=== PATIENT | female | born 1965 | race Caucasian/White ===

== ENCOUNTER 2019-09-01 01:39 | Inpatient (IN) | payer SELFPAY ==
[~2019-09-01] VITALS: Ht 175.3 cm; Wt 79.4 kg
--- NOTE | 2019-09-01 02:15 | NUR ---
PT AAOX4. BIBS C/O SOB AND SLEEP DEPRIED. PER PATIENT "I DONT FEEL GOOD. I FEEL TIRED AND CONFUSED." PT COUGHING AND BREATHING USING ACESSORY MUSCLES. PT PLACED ON MONITOR AND PULSE OX. WILL CONTINUE TO MONITOR.
[2019-09-01 02:38] LABS: BASOPHILS # (AUTO) 0.1 /CMM (0.0-0.2); BASOPHILS % (AUTO) 1.1 % (0.0-2.0); EOSINOPHILS % (AUTO) 0.8 % (0.0-6.0); HEMATOCRIT 46 % (33-45); HEMOGLOBIN 14.8 g/dL (11.5-14.8); LYMPHOCYTES # (AUTO) 1.1 /CMM (0.8-4.8); LYMPHOCYTES % (AUTO) 15.1 % (20.0-44.0); MEAN CORPUSCULAR HGB CONC 32 g/dl (31.0-36.0); MEAN CORPUSCULAR VOLUME 79 fL (82-100); MONOCYTES # (AUTO) 0.6 /CMM (0.1-1.30); MONOCYTES % (AUTO) 8.7 % (2.0-12.0); NEUTROPHILS # (AUTO) 5.3 /CMM (1.8-8.9); NEUTROPHILS % (AUTO) 74.3 % (43.0-81.0); PLATELET COUNT (AUTO) 258 /CMM (150-450); RED BLOOD CELL COUNT(AUTO) 5.85 MIL/uL (4.0-5.2); WHITE BLOOD COUNT (AUTO) 7.1 K/uL (4.3-11.0)
[2019-09-01 02:45] LABS: CALCIUM, SERUM 9.1 mg/dL (8.5-10.1); CREATININE 1.2 mg/dL (0.6-1.3)
--- NOTE | 2019-09-01 02:45 | NUR ---
xray at bedside
[2019-09-01] MEDS ORDERED: FUROSEMIDE 40 MG/4 ML VIAL IV ONE (03:30)
--- NOTE | 2019-09-01 03:44 | NUR ---
BED ASSIGNMENT 307-2
[2019-09-01] MEDS ORDERED: ZOLPIDEM TARTRATE 5 MG TABLET PO PRN (04:00)
[2019-09-01] MEDS ORDERED: MAG HYDROX/AL HYDROX/SIMETH 30 ML UDC PO PRN (04:00)
[2019-09-01] MEDS ORDERED: ACETAMINOPHEN 325 MG TABLET PO PRN (04:00)
[2019-09-01] MEDS ORDERED: HYDROCODONE/APAP 5/325MG 1 EACH TABLET PO PRN (04:00)
[2019-09-01] MEDS ORDERED: MORPHINE SULFATE INJ 2 MG/ML DISP.SYRIN IV PRN (04:00)
[2019-09-01] MEDS ORDERED: MAGNESIUM HYDROXIDE 30 ML UDC PO PRN (04:00)
--- NOTE | 2019-09-01 04:10 | NUR ---
REPORT GIVEN TO LAKSHMI CORTEZ
[2019-09-01 04:50] VITALS: BP 149/66
--- NOTE | 2019-09-01 04:50 | NUR ---
ADMISSION NOTE PATIENT 53 YO MALE (IDENTIFIES FEMALE) WITH CC OF WORSENING SOB. ADMITTED TO TELEMETRY FOR CHF EXACERBATION. AT THIS TIME SHE DENIES SOB. IN NO APPARET DISTRESS ON RA. PT WISHES TO BE FULL CODE. ADMISSION ASSESSMENT PERFORMED NEW ORDERS RECIED FROM VANESSA RICHARDS. PT ORIENTED X3. PT ORIENTED TO ROOM. BED DOWN LOCKED CALL LIGHT WITHIN REACH. SR X2. PT AMBULATORY AND NOT A FALL RISK.
[2019-09-01 05:04] LABS: ALBUMIN 3.4 g/dL (3.4-5.0); BILIRUBIN,DIRECT 1.2 mg/dL (0.0-0.2); BILIRUBIN,TOTAL 2.2 mg/dL (0.2-1.0); MAGNESIUM 1.9 mg/dL (1.8-2.4); PHOSPHORUS 4.4 mg/dL (2.5-4.9); TOTAL PROTEIN, SERUM 7.1 g/dL (6.4-8.2)
[2019-09-01 05:12] LABS: THYROID STIMULATING HORMONE 13.801 uIU/mL (0.358-3.74)
[2019-09-01] MEDS: PANTOPRAZOLE 40 MG TABLET.DR PO SCH (06:37)
--- NOTE | 2019-09-01 07:00 | NUR ---
DRYING UNIT FELTING MACHINE OPERATOR NOTES PATIENT IN BED ALERT ORIENTED X 3. NO ACUTE DISTRESS NOTED, BREATHING UNLABORED. IV ACCESS PATENT AND INTACT, NO REDNESS, NO SWELLING NOTED. SAFETY MEASURES IN PLACE. CALL LIGHT WITHIN REACH. WILL CONTINUE TO MONITOR ACCORDINGLY.
[2019-09-01] MEDS ORDERED: LEVO25TA9 PO (08:01)
[2019-09-01] MEDS ORDERED: CARV3.122 PO (08:07)
[2019-09-01] MEDS ORDERED: FUROSEMIDE 40 MG/4 ML VIAL IV SCH (09:00)
[2019-09-01] MEDS ORDERED: ENOXAPARIN SODIUM 40 MG/0.4 ML DISP.SYRIN SQ SCH (09:30)
--- NOTE | 2019-09-01 09:30 | NUR ---
GASKET SUPERVISOR NOTES CLARIFIED WITH DR LISSETTE CEDENO PRESENT ON THE FLOOR REGARDING LASIX 80MG ORDER, MADE AWARE THAT LASIX 40 MG IV ALREADY GIVEN EARLIER, PER DR MCLAUGHLIN GIVE LASIX 80MG ORDERED. DR MCLAUGHLIN AWARE OF ECHOCARDIOGRAM RESULT.
[2019-09-01] MEDS: FUROSEMIDE 100 MG/10 ML VIAL IV SCH ×3 (09:56→18:22)
[2019-09-01] MEDS: CARVEDILOL 6.25 MG TABLET PO SCH ×2 (09:56→21:38)
--- NOTE | 2019-09-01 11:00 | NUR ---
PHOTO RETOUCHER NOTES LABORATORY TEST RESULTED FROM TODAY INCLUDING FREE T4 , BJ VELASQUEZ PRESENT ON THE FLOOR AWARE.
[2019-09-01 12:00] VITALS: BP 105/57
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
[2019-09-01 16:00] VITALS: BP 105/71
--- NOTE | 2019-09-01 18:48 | NUR ---
PRINTED CIRCUIT BOARD PANELS DEBURRER NOTES PATIENT IN BED ALERT ORIENTED X 3. NO ACUTE DISTRESS NOTED, BREATHING UNLABORED. NO SOB NOTED. IV ACCESS PATENT AND INTACT, NO REDNESS, NO SWELLING NOTED. DUE MEDICATIONS GIVEN, NO ASE NOTED. NEEDS ATTENDED AND ANTICIPATED. KEPT CLEAN DRY AND COMFORTABLE. SAFETY MEASURES IN PLACE. CALL LIGHT WITHIN REACH. WILL ENDORSE TO NIGHT NURSE FOR CONTINUITY OF CARE.
--- NOTE | 2019-09-01 19:25 | NUR ---
TELERN FULLY AWAKE, DENIES DISCOMFORTS, NO SOB. LOWER EXTREMITIES SLIGHTLY SWOLLEN, ELEVATED ON PILLOWS. STATED HER LEGS ARE BETTER THIS TIME AFTER RECEIVING 3 DOSES OF LASIX IV. STRICT I/O, REMINDED TO CALL STAFF FOR ANY ASSISTANCE OR DISCOMFORTS. SR ON THE MONITOR, ENCOURAGED TO SPACE ACTIVITIES. NO OTHER NEEDS MADE. CONTINUED MONITORING. CLOSELY WATCHED.
[2019-09-01 20:00] VITALS: BP 94/64
--- NOTE | 2019-09-01 22:55 | NUR ---
TELERN OCCASIONAL PRODUCTIVE COUGH, NO SOB. FLUIDS RESTRICTED. MID SNACKS PROVIDED. DUE MEDS ORDERED ADMINISTERED.
--- NOTE | 2019-09-01 23:20 | NUR ---
TELERN SLEEPS ON/OFF. SOB THIS TIME ON MIN EXERTION. BP 87/64. BEDREST INSTRUCTED. 02 2 L VIA NC STARTED. VOIDED 180 CC YELLOW URINE. FEW CRACKLES NOTED. STAYED WITH PT FOR AWHILE, CLOSELY WATCHED.
[2019-09-02] VITALS: BP 96/70
--- NOTE | 2019-09-02 00:15 | NUR ---
TELERN SATURATION AT 96 % BP 96/70. NO SOB, 02 MAINTAINED. CLOSELY WATCHED.
[2019-09-02 05:00] VITALS: BP 119/64
--- NOTE | 2019-09-02 06:30 | NUR ---
TELERN FINALLY SLEPT, CLOSELY WATCHED.
[2019-09-02 06:44] LABS: ALBUMIN 2.5 g/dL (3.4-5.0); BILIRUBIN,TOTAL 1.8 mg/dL (0.2-1.0); CALCIUM, SERUM 8.3 mg/dL (8.5-10.1); CREATININE 1.3 mg/dL (0.6-1.3); POTASSIUM 2.9 mmol/L (3.5-5.1); TOTAL PROTEIN, SERUM 5.7 g/dL (6.4-8.2)
[2019-09-02 06:46] LABS: BASOPHILS % (AUTO) 0.6 % (0.0-2.0); EOSINOPHILS % (AUTO) 2.1 % (0.0-6.0); HEMATOCRIT 41 % (33-45); HEMOGLOBIN 12.9 g/dL (11.5-14.8); LYMPHOCYTES # (AUTO) 1.6 /CMM (0.8-4.8); LYMPHOCYTES % (AUTO) 27.6 % (20.0-44.0); MEAN CORPUSCULAR HGB CONC 32 g/dl (31.0-36.0); MEAN CORPUSCULAR VOLUME 78 fL (82-100); MONOCYTES # (AUTO) 0.5 /CMM (0.1-1.30); MONOCYTES % (AUTO) 8.8 % (2.0-12.0); NEUTROPHILS # (AUTO) 3.6 /CMM (1.8-8.9); NEUTROPHILS % (AUTO) 60.9 % (43.0-81.0); PLATELET COUNT (AUTO) 214 /CMM (150-450); RED BLOOD CELL COUNT(AUTO) 5.16 MIL/uL (4.0-5.2); WHITE BLOOD COUNT (AUTO) 5.9 K/uL (4.3-11.0)
[2019-09-02 08:00] VITALS: BP_SYST 152; BP_SYST 95; BP_DIAS 69; BP_DIAS 78
[2019-09-02] MEDS: ENOXAPARIN SODIUM 40 MG/0.4 ML DISP.SYRIN SQ SCH (09:00)
[2019-09-02] MEDS: POTASSIUM CHLORIDE 20 MEQ TAB.PRT.SR PO SCH ×5 (09:27→14:10)
[2019-09-02] MEDS: CARVEDILOL 6.25 MG TABLET PO SCH ×2 (09:27→21:00)
[2019-09-02] MEDS: PANTOPRAZOLE 40 MG TABLET.DR PO SCH (09:31)
--- NOTE | 2019-09-02 10:05 | NUR ---
EDUCATION ABOUT AMOUNT FLUID INTAKE PROVIDED. SUGGESTED SAFE ENERGY AND STAY IN BED AND USE OXYGEN FOR COMFORT. PATIENT VERBALIZED UNDERSTANDING
[2019-09-02] MEDS: LEVOTHYROXINE SODIUM 50 MCG TABLET PO SCH (12:32)
[2019-09-02] MEDS: FUROSEMIDE 100 MG/10 ML VIAL IV SCH ×3 (12:36→23:34)
[2019-09-02 16:00] VITALS: BP 113/71
--- NOTE | 2019-09-02 19:11 | NUR ---
PATIENT IN BED ALERT ORIENTED X 3. SOB WHEN WALKING.STRICT I/O. IV ACCESS PATENT AND INTACT. NEEDS ATTENDED AND ANTICIPATED. KEPT CLEAN DRY AND COMFORTABLE. SAFETY MEASURES IN PLACE. CALL LIGHT WITHIN REACH. WILL ENDORSE TO NIGHT NURSE FOR CONTINUITY OF CARE.
--- NOTE | 2019-09-02 19:40 | NUR ---
RN OPENING NOTES RECEIVED REPORT FROM NILSON RNFLO. FOUND Pt AWAKE, SITTING UP IN BED. A/OX3, VERBAL, ABLE TO MAKE NEEDS KNOWN. ON TELE MONITOR, TELE READING SR 88 W/PVC's. IV ACCESS ON LAC #18G, SL. SAFETY MEASURES IN PLACE. BED LOW, LOCKED, HOB ELEVATED, SIDE RAILS UP, CALL LIGHT AND BEDSIDE TABLE WITHIN REACH. WILL CONTINUE TO MONITOR Pt's CONDITION AND SAFETY THROUGHOUT THE NIGHT.
[2019-09-02 20:06] VITALS: BP 96/73
[2019-09-02] MEDS: ONDANSETRON HCL/PF 4 MG/2 ML VIAL IVP PRN (20:08)
--- NOTE | 2019-09-03 06:45 | NUR ---
RN CLOSING NOTES NO SIGNIFICANT CHANGES IN Pt's CONDITION. Pt REMAINS STABLE PER BASELINE. NO S/S OF ACUTE DISTRESS OR SEVERE SOB NOTED DURING THE SHIFT. ALL NEEDS MET AND ATTENDED TO. SAFETY MEASURES IN PLACE. BED LOW, LOCKED, HOB ELEVATED, SIDE RAILS UP, CALL LIGHT AND BEDSIDE TABLE WITHIN REACH. WILL ENDORSE TO DAYSHIFT RN FOR Pt's PRISCILLA. Addendum: 09/03/19 at 0653 by URI CASTORENA RN TELE READING SR 93 W/BBB's
[2019-09-03] MEDS: PANTOPRAZOLE 40 MG TABLET.DR PO SCH (07:30)
[2019-09-03 07:46] LABS: BASOPHILS # (AUTO) 0.1 /CMM (0.0-0.2); BASOPHILS % (AUTO) 0.6 % (0.0-2.0); EOSINOPHILS % (AUTO) 0.2 % (0.0-6.0); HEMATOCRIT 46 % (33-45); HEMOGLOBIN 14.5 g/dL (11.5-14.8); LYMPHOCYTES % (AUTO) 22.9 % (20.0-44.0); MEAN CORPUSCULAR HGB CONC 31 g/dl (31.0-36.0); MEAN CORPUSCULAR VOLUME 79 fL (82-100); MONOCYTES # (AUTO) 1.2 /CMM (0.1-1.30); MONOCYTES % (AUTO) 13.8 % (2.0-12.0); NEUTROPHILS # (AUTO) 5.6 /CMM (1.8-8.9); NEUTROPHILS % (AUTO) 62.5 % (43.0-81.0); PLATELET COUNT (AUTO) 227 /CMM (150-450); RED BLOOD CELL COUNT(AUTO) 5.82 MIL/uL (4.0-5.2); WHITE BLOOD COUNT (AUTO) 8.9 K/uL (4.3-11.0)
[2019-09-03 07:55] LABS: BILIRUBIN,TOTAL 2.3 mg/dL (0.2-1.0); CALCIUM, SERUM 8.9 mg/dL (8.5-10.1); CREATININE 1.4 mg/dL (0.6-1.3); MAGNESIUM 1.9 mg/dL (1.8-2.4); PHOSPHORUS 5.1 mg/dL (2.5-4.9); TOTAL PROTEIN, SERUM 6.6 g/dL (6.4-8.2)
[2019-09-03 08:00] VITALS: BP 85/53
[2019-09-03] MEDS: LEVOTHYROXINE SODIUM 50 MCG TABLET PO SCH (08:51)
[2019-09-03] MEDS: CARVEDILOL 6.25 MG TABLET PO SCH ×2 (08:52→21:00)
[2019-09-03] MEDS: ENOXAPARIN SODIUM 40 MG/0.4 ML DISP.SYRIN SQ SCH (08:56)
[2019-09-03 12:00] VITALS: BP 78/62
[2019-09-03] MEDS: ONDANSETRON HCL/PF 4 MG/2 ML VIAL IVP PRN ×2 (15:28→21:38)
[2019-09-03 16:00] VITALS: BP 99/69
--- NOTE | 2019-09-03 17:30 | NUR ---
PATIENT NOTED WITH DISTENDED ABDOMEN, NO N/V AT THIS MOMENT
--- NOTE | 2019-09-03 18:03 | NUR ---
RECEIVED A NEW ORDER FROM ; CT ABDOMEN /PELVIS STAT
--- NOTE | 2019-09-03 18:35 | NUR ---
PATIENT PICKED UP BY RADIOLOGY STAFF
--- NOTE | 2019-09-03 19:45 | NUR ---
RN OPENING NOTES RECEIVED REPORT FROM FLO DEVINE RN. FOUND Pt AWAKE, SITTING UP IN BED. A/OX3, VERBAL, ABLE TO MAKE NEEDS KNOWN. ON TELE MONITOR, TELE READING SR 87 W/PVC's. IV ACCESS ON RFA #22G, SL. SAFETY MEASURES IN PLACE. BED LOW, LOCKED, HOB ELEVATED, SIDE RAILS UP, CALL LIGHT AND BEDSIDE TABLE WITHIN REACH. WILL CONTINUE TO MONITOR Pt's CONDITION AND SAFETY THROUGHOUT THE NIGHT.
[2019-09-03 20:00] VITALS: BP 98/76
[2019-09-04] VITALS (7 sets, daily range): BP systolic 90–129; BP diastolic 60–76
[2019-09-04] MEDS: ALBUTEROL FS 2.5 MG/0.5 ML VIAL.NEB NEB PRN ×3 (00:14→22:50)
[2019-09-04] MEDS: IPRATROPIUM NEB FS 0.5 MG/2.5 ML AMPUL.NEB NEB PRN ×3 (00:14→22:50)
[2019-09-04] MEDS: ONDANSETRON HCL/PF 4 MG/2 ML VIAL IVP PRN (04:24)
--- NOTE | 2019-09-04 06:39 | NUR ---
RN CLOSING NOTES NO SIGNIFICANT CHANGES IN Pt's CONDITION. PRN BREATHING TREATMENT ORDERED. RECEIVED X1 BREATHING TREATMENT DURING SHIFT. ALL NEEDS MET AND ATTENDED TO. SAFETY MEASURES IN PLACE. BED LOW, LOCKED, HOB ELEVATED, SIDE RAILS UP, CALL LIGHT AND BEDSIDE TABLE WITHIN REACH. TELE READING SR 81 W/ BBBs. WILL ENDORSE TO DAYSHIFT RN FOR Pt's PRISCILLA.
[2019-09-04 06:40] LABS: BASOPHILS % (AUTO) 0.6 % (0.0-2.0); EOSINOPHILS % (AUTO) 0.4 % (0.0-6.0); HEMATOCRIT 43 % (33-45); HEMOGLOBIN 13.8 g/dL (11.5-14.8); LYMPHOCYTES # (AUTO) 1.7 /CMM (0.8-4.8); LYMPHOCYTES % (AUTO) 20.6 % (20.0-44.0); MEAN CORPUSCULAR HGB CONC 32 g/dl (31.0-36.0); MEAN CORPUSCULAR VOLUME 79 fL (82-100); MONOCYTES # (AUTO) 0.9 /CMM (0.1-1.30); MONOCYTES % (AUTO) 11.4 % (2.0-12.0); NEUTROPHILS # (AUTO) 5.5 /CMM (1.8-8.9); PLATELET COUNT (AUTO) 214 /CMM (150-450); WHITE BLOOD COUNT (AUTO) 8.2 K/uL (4.3-11.0)
[2019-09-04] MEDS: PANTOPRAZOLE 40 MG TABLET.DR PO SCH (07:25)
[2019-09-04] MEDS: LEVOTHYROXINE SODIUM 50 MCG TABLET PO SCH (07:25)
--- NOTE | 2019-09-04 07:28 | NUR ---
PHOTOGRAPHERS' MODEL OPENING NOTES RECEIVED PT SITTING ON CHAIR BY BEDSIDE. A/O X3. ABLE TO MAKE NEEDS KNOWN, DENIES PAIN OR ANY DISCOMFORTS AT THIS TIME. PT ON PRN SUPPLEMENTAL 02 VIA N/C @ 2LPM, BREATHING EVEN AND UNLABORED, NO SOB NOTED AT THIS TIME. ON TELE MONITORING WITH CURRENT READING OF SR WITH BBB'S AND HR OF 85, NO C/O CARDIAC DISTRESS VOICED. IV SL ON RFA INTACT AND PATENT. CALL LIGHT AND BEDSIDE TABLE WITHIN EASY REACH OF PT. WILL CONTINUE TO MONITOR PT ACCORDINGLY.
[2019-09-04 07:44] LABS: ALBUMIN 3.1 g/dL (3.4-5.0); BILIRUBIN,TOTAL 2.6 mg/dL (0.2-1.0); CALCIUM, SERUM 9.1 mg/dL (8.5-10.1); CREATININE 1.8 mg/dL (0.6-1.3); MAGNESIUM 2.1 mg/dL (1.8-2.4); PHOSPHORUS 4.9 mg/dL (2.5-4.9); POTASSIUM 4.8 mmol/L (3.5-5.1); TOTAL PROTEIN, SERUM 6.5 g/dL (6.4-8.2)
[2019-09-04] MEDS: CARVEDILOL 6.25 MG TABLET PO SCH ×2 (08:09→21:30)
[2019-09-04] MEDS: ENOXAPARIN SODIUM 40 MG/0.4 ML DISP.SYRIN SQ SCH (08:11)
--- NOTE | 2019-09-04 08:51 | NUR ---
RN NOTES PT SEEN AND EVALUATED BY DR KAHN WITH ORDER TO DO NM HIDA SCAN. NM WENDY LUCERO CAME AND EXPLAINED PROCEDURE TO PT AND STATED THAT HE WILL DO IT AT 1200 . PT VERBALIZED UNDERSTANDING. NPO ENFORCED. WILL CONTINUE TO MONITOR.
[2019-09-04] MEDS ORDERED: PIPERACILLIN /TAZOBACTAM 3.375 G in IV D5W 50 ML IV ONE (09:00)
--- NOTE | 2019-09-04 10:21 | NUR ---
RN NOTES PT SEEN AND EVALUATED BUY DR ROWLAND. INFORMED HIM REGARDING PT'S TELEMONITORING READINGS OF OCCASIONAL PVC'S AND BBB'S. NO NEW ORDER MADE AT THIS TIME AND TO CONTINUE TO CLOSELY MONITOR PT.
[2019-09-04] MEDS ORDERED: PIPERACILLIN /TAZOBACTAM 4.5 G in IV D5W 50 ML IV SCH (12:00)
--- NOTE | 2019-09-04 12:53 | NUR ---
RN NOTES PT RETURNED FROM ME HIDA SCAN. NM WENDY LUCERO STATED THAT HE WILL TAKE PT'S DOWN AGAIN LATER FOR FINAL SCAN. WILL CONTINUE TO MONITOR
--- NOTE | 2019-09-04 13:31 | NUR ---
RN NOTES LEFT VEST FROM [facility] DELIVERED BY MARIETTA. MARIETTA EDUCATED AND DEMONSTRATED HOW TO USE THE LIFE VEST AND PT ABLE TO DEMONSTRATE HOW TO USE IT. LIFE VEST AT BEDSIDE AT THIS TIME.
--- NOTE | 2019-09-04 13:33 | NUR ---
RN NOTES PT PICKED-UP BY JAZMINE VIA WHEELCHAIR FOR NM HIDA SCAN.
[2019-09-04] MEDS ORDERED: PIPERACILLIN /TAZOBACTAM 3.375 G in IV D5W 100 ML IV SCH (15:00)
[2019-09-04] MEDS: PIPERACILLIN /TAZOBACTAM 3.375 G in IV D5W 100 ML IV SCH (16:12)
--- NOTE | 2019-09-04 16:53 | NUR ---
RN NOTES PT WHEELED DOWN JUST NOW BY JAZMINE VIA WHEELCHAIR FOR FINAL NM HIDA SCAN.
--- NOTE | 2019-09-04 18:44 | NUR ---
WATCH LEADER CLOSING NOTES PT AWAKE AND SITTING AT SIDE OF BED AT THIS TIME. A/O X3. ABLE TO VERBALIZED NEED AND AMBULATORY. ON PRN SUPPLEMENTAL 02 VIA N/C @ 2-3LPM, BREATHING EVEN AND UNLABORED, NO SOB NOTED. ON TELE MONITORING SHOWS CURRENT READING OF SR WITH BBB'S AND HR ON THE 80'S, NO C/O CARDIAC DISTRESS VOICED. IV ACCESS ON RFA G#22 INTACT AND PATENT, IV ATB ZOSYN INFUSING @ 25ML/HR AT THIS TIME, NO S/S OF INFILTRATIONS OR INFECTION AT SITE NOTED. ALL NEEDS AND CARE ATTENDED WELL. BED IN LOW LOCKED POSITION WITH SR UP X2. CALL LIGHT AND BEDSIDE TABLE WITHIN EASY REACH OF PT. WILL ENDORSE TO CUTTING AND PRINTING MACHINE OPERATOR NURSE FOR PRISCILLA.
[2019-09-04 18:58] LABS: AMYLASE 18 U/L (25-115); LIPASE 49 U/L (73-393)
[2019-09-04 18:59] LABS: ACETAMINOPHEN < 2 ug/ml (10-30)
[2019-09-04 19:39] LABS: IRON, SERUM 34 ug/dl (50-175); TOTAL IRON BINDING CAPACITY 466 ug/dl (250-450)
[2019-09-04 20:06] LABS: FERRITIN 65 ng/mL (8-388); GAMMA GLUTAMYL TRANSFERASE 115 U/L (5-85)
--- NOTE | 2019-09-04 20:30 | NUR ---
RN NOTES PATIENT ALERT AND ORIENTED X4, ROOM AIR, ANXIOUS, RESTLESS, NON PRODUCTIVE COUGH, HX OF CHF, LUNG SOUNDS ARE CLEAR ON AUSCULTATION, UNCOMFORTABLE LYING DOWN, BLOATED, WITH JAUNDICE, THIGH EDEMA, US DOPPLER OF ABDOMEN VEINS COMPLETED, WILL FOLLOW UP RESULTS.
[2019-09-05] VITALS (7 sets, daily range): BP systolic 93–110; BP diastolic 52–77
[2019-09-05] MEDS: PIPERACILLIN /TAZOBACTAM 3.375 G in IV D5W 100 ML IV SCH ×3 (00:05→18:46)
--- NOTE | 2019-09-05 06:40 | NUR ---
RN NOTES PATIENT IS ALERT AND ORIENTED X3, ROOM AIR, ANXIOUS, RESTLESS, DRY COUGH, LUNGS ARE CLEAR ON AUSCULTATION, SPO2 ON ROOM AIR 100%, ZOSYN GIVEN, STRICT I&Os, LIFE VEST ON, PATIENT WAS INSTRUCTED TO USE LIFE VEST WHEN TELE MONITOR IS DISCONTINUED OR UPON DISCHARGE
[2019-09-05 06:56] LABS: ALBUMIN 2.9 g/dL (3.4-5.0); BILIRUBIN,DIRECT 1.4 mg/dL (0.0-0.2); BILIRUBIN,TOTAL 2.2 mg/dL (0.2-1.0); TOTAL PROTEIN, SERUM 6.2 g/dL (6.4-8.2)
--- NOTE | 2019-09-05 07:14 | NUR ---
INITIAL RECEIVED PT ASLEEP IN BED RESPIRATION EVEN AND UNLABORED NO DISTRESS NOTED. REPORTED PT IS. A/O X3. ABLE TO MAKE NEEDS KNOWN. PT ON PRN SUPPLEMENTAL 02 VIA N/C @ 2LPM , NO SOB NOTED AT THIS TIME. ON TELE MONITORING WITH CURRENT READING OF SR WITH BBB'S AND HR OF 71, NO C/O CARDIAC DISTRESS VOICED. IV SL ON RFA INTACT AND PATENT. CALL LIGHT AND BEDSIDE TABLE WITHIN EASY REACH OF PT. WILL CONTINUE TO MONITOR PT ACCORDINGLY.
[2019-09-05] MEDS: ALBUTEROL FS 2.5 MG/0.5 ML VIAL.NEB NEB PRN (07:46)
[2019-09-05] MEDS: IPRATROPIUM NEB FS 0.5 MG/2.5 ML AMPUL.NEB NEB PRN (07:46)
[2019-09-05] MEDS ORDERED: DoBUTamine 500 MG/250 ML PIGGYBACK IV ONE (08:00)
[2019-09-05 08:13] LABS: BASOPHILS % (AUTO) 0.4 % (0.0-2.0); EOSINOPHILS % (AUTO) 0.9 % (0.0-6.0); HEMATOCRIT 43 % (33-45); HEMOGLOBIN 13.7 g/dL (11.5-14.8); LYMPHOCYTES # (AUTO) 1.7 /CMM (0.8-4.8); LYMPHOCYTES % (AUTO) 19.4 % (20.0-44.0); MEAN CORPUSCULAR HGB CONC 32 g/dl (31.0-36.0); MEAN CORPUSCULAR VOLUME 79 fL (82-100); MONOCYTES # (AUTO) 0.7 /CMM (0.1-1.30); MONOCYTES % (AUTO) 7.9 % (2.0-12.0); NEUTROPHILS # (AUTO) 6.2 /CMM (1.8-8.9); NEUTROPHILS % (AUTO) 71.4 % (43.0-81.0); PLATELET COUNT (AUTO) 237 /CMM (150-450); WHITE BLOOD COUNT (AUTO) 8.7 K/uL (4.3-11.0)
[2019-09-05] MEDS: PANTOPRAZOLE 40 MG TABLET.DR PO SCH (08:16)
[2019-09-05] MEDS: LEVOTHYROXINE SODIUM 50 MCG TABLET PO SCH (08:17)
[2019-09-05 08:35] LABS: MAGNESIUM 2.2 mg/dL (1.8-2.4); PHOSPHORUS 4.9 mg/dL (2.5-4.9)
[2019-09-05] MEDS: ENOXAPARIN SODIUM 40 MG/0.4 ML DISP.SYRIN SQ SCH (08:35)
[2019-09-05] MEDS: CARVEDILOL 6.25 MG TABLET PO SCH ×2 (09:00→20:47)
--- NOTE | 2019-09-05 10:02 | NUR ---
ROSEANN RN NOTE PATIENT TRANSFERRED DOWN TO ROSEANN WITH NO S/S OF RESP DISTRESS. PATIENT ON 2L NC TOLERATING WELL. PATIENT DENIES CHEST PAIN/ SOB. PATIENT IVS PATENT AND INTACT NO S/S OF INFECTION OR INFILTRATION RUNNING ZOSYN PIGGY BACK. PATIENT A/0 X 4. POC AND GOALS DISCUSSED WITH PATIENT. PATIENT VERBALIZES UNDERSTANDING. CALL LIGHT WITHIN REACH. RN WILL CONTINUE TO MONITOR. SAFETY PRECAUTIONS IN PLACE. BED IN LWEST LOCKED POSITION SIDE RAILS UP X 2.
--- NOTE | 2019-09-05 11:00 | NUR ---
RN NOTES DUE CARVEDILOL DUE AT 900AM NOT GIVEN DUE TO BLOOD PRESSURE BELOW THE PARAMETER
--- NOTE | 2019-09-05 12:58 | NUR ---
RN NOTES INFORMED CHARGE NURSE AND CALLED PHARMACY TO INFORM THAT PUMPS RECOMMENDS CENTRAL LINE WITH THE DOBUTAMINE DRIP ADMINISTRATION. SPOKE TO ЕКАТЕРИНА, PER THE LATTER OKAY TO GIVE THROUGH PERIPHERAL LINE
--- NOTE | 2019-09-05 13:00 | NUR ---
RN NOTES STARTED DOBUTAMINE DRIP ORDERED. WILL MONITOR PATIENT ACCORDINGLY
[2019-09-05] MEDS: DOBUTamine 500 MG in IV D5W 210 ML IV PRN (15:29)
--- NOTE | 2019-09-05 15:29 | NUR ---
RN NOTES SCANNED DOBUTAMINE AT THIS TIME BUT WAS STARTED PRIOR TO THIS TIME AT 1300. CALCULATION OF AMOUNT TO BE TRANSFUSED CALCULATED WITH DANA HO (CHARGE NURSE). PATIENT WEIGHT 79KG.
--- NOTE | 2019-09-05 17:00 | NUR ---
RN NOTES CALLED PHARMACY FOR ZOSYN, PER PHARMACIST WILL DELIVERED
--- NOTE | 2019-09-05 19:00 | NUR ---
RN NOTES ENDORSED FOR CONTINUITY OF CARE. NOT ON ANY FORM OF DISTRESS. WITH ONGOING DOBUTAMINE AT PRESCRIBED RATE AND ZOSYN AT 25CC/HR. ALL NEEDS ATTENDED AND MET. CALL LIGHT WITHIN REACH.SAFETY MEASURES IN PLACE.
[2019-09-05] MEDS: ZOLPIDEM TARTRATE 5 MG TABLET PO PRN (20:31)
[2019-09-06] VITALS (10 sets, daily range): BP systolic 90–112; BP diastolic 52–71
[2019-09-06] MEDS: PIPERACILLIN /TAZOBACTAM 3.375 G in IV D5W 100 ML IV SCH ×3 (00:53→16:21)
[2019-09-06] MEDS: DOBUTamine 500 MG in IV D5W 210 ML IV PRN ×2 (03:03→16:19)
[2019-09-06 04:06] LABS: HIV SCRN 4G wRFX Non Reactive (Non Reactive)
[2019-09-06 06:06] LABS: VARICELLA ZOSTER IgG 3194 index (Immune >165)
[2019-09-06 06:54] LABS: BASOPHILS # (AUTO) 0.1 /CMM (0.0-0.2); BASOPHILS % (AUTO) 0.8 % (0.0-2.0); EOSINOPHILS % (AUTO) 2.1 % (0.0-6.0); HEMATOCRIT 38 % (33-45); HEMOGLOBIN 12.7 g/dL (11.5-14.8); LYMPHOCYTES % (AUTO) 16.2 % (20.0-44.0); MEAN CORPUSCULAR HGB CONC 33 g/dl (31.0-36.0); MEAN CORPUSCULAR VOLUME 77 fL (82-100); MONOCYTES # (AUTO) 0.6 /CMM (0.1-1.30); MONOCYTES % (AUTO) 9.1 % (2.0-12.0); NEUTROPHILS # (AUTO) 4.6 /CMM (1.8-8.9); NEUTROPHILS % (AUTO) 71.8 % (43.0-81.0); PLATELET COUNT (AUTO) 222 /CMM (150-450); RED BLOOD CELL COUNT(AUTO) 4.98 MIL/uL (4.0-5.2); WHITE BLOOD COUNT (AUTO) 6.4 K/uL (4.3-11.0)
[2019-09-06 07:06] LABS: IMMUNOGLOBULIN A, SERUM 318 mg/dL (87-352); IMMUNOGLOBULIN G, SERUM 825 mg/dL (700-1600); IMMUNOGLOBULIN M, SERUM 68 mg/dL (26-217)
[2019-09-06 07:10] LABS: ALBUMIN 2.6 g/dL (3.4-5.0); BILIRUBIN,TOTAL 1.9 mg/dL (0.2-1.0); CALCIUM, SERUM 8.3 mg/dL (8.5-10.1); CREATININE 1.4 mg/dL (0.6-1.3); MAGNESIUM 2.1 mg/dL (1.8-2.4); PHOSPHORUS 3.2 mg/dL (2.5-4.9); POTASSIUM 3.9 mmol/L (3.5-5.1)
--- NOTE | 2019-09-06 07:10 | NUR ---
ROSEANN RN OPENING NOTES RECEIVED PT LYING ON BED,ALERT/ORIENTED X3 WITH ANXIETY BEHAVIOR.ON TELE HR IS 72 WITH NSR.ON ROOM AIR,TOLERATING WELL.NO SOB AND ACUTE DISTRESS NOTED.CAN AMBULATE WELL WITH ONE PERSON ASSISTANCE.IV LINE IS ON RIGHT FA G22,SL AND LEFT FA G22 WITH IV DOBUTAMINE @7MCG/HR IS RUNNING,PT TOLERATED WELL WITH HR IS 77.SITE IS CLEAN,DRY AND INTACT.NO INFILTRATION NOTED.BED IS IN LOW POSITION AND LOCKED,CALL LIGHT IS WITHIN REACH.WILL CONTINUE TO MONITOR THE PT CLOSELY.
[2019-09-06] MEDS: PANTOPRAZOLE 40 MG TABLET.DR PO SCH (08:22)
[2019-09-06] MEDS: LEVOTHYROXINE SODIUM 50 MCG TABLET PO SCH (08:22)
[2019-09-06] MEDS: CARVEDILOL 6.25 MG TABLET PO SCH ×2 (08:29→21:00)
[2019-09-06] MEDS: ENOXAPARIN SODIUM 40 MG/0.4 ML DISP.SYRIN SQ SCH (08:29)
[2019-09-06] MEDS: FUROSEMIDE 40 MG/4 ML VIAL IV SCH ×3 (09:16→16:20)
[2019-09-06] MEDS: IPRATROPIUM NEB FS 0.5 MG/2.5 ML AMPUL.NEB NEB PRN (09:34)
[2019-09-06] MEDS: ALBUTEROL FS 2.5 MG/0.5 ML VIAL.NEB NEB PRN (09:34)
[2019-09-06 15:06] LABS: *ANA ANTI-CENTROMERE B AB <0.2 AI (0.0-0.9); *ANA ANTI-DNA(DS) AB, QN 1 IU/mL (0-9); *ANA ANTI-JO-1 <0.2 AI (0.0-0.9); *ANA ANTICHROMATIN ANTIBODY <0.2 AI (0.0-0.9); *ANA RNP ANTIBODIES <0.2 AI (0.0-0.9); *ANA SJOGREN'S ANTI-SS-A <0.2 AI (0.0-0.9); *ANA SJOGREN'S ANTI-SS-B <0.2 AI (0.0-0.9); *ANAANTI-SCLERODERMA-70 AB <0.2 AI (0.0-0.9); *ANASMITH AB <0.2 AI (0.0-0.9)
--- NOTE | 2019-09-06 18:32 | NUR ---
ROSEANN RN CLOSING NOTES PT IS LYING ON BED,ALERT/ORIENTED X4.WITH IV DOBUTAMINE ON LEFT ARM IS RUNNING AND IV ZOSYN @25CC/HR IS RUNNING IN RIGHT ARM.SITE IS CLEAN,DRY AND INTACT.NO INFILTRATION NOTED.RESPIRATION IS EVEN AND NONLABORED.NO SIGNIFICANT CHANGES NOTED I THE SHIFT.WILL ENDORSE TO STRATEGIC SOURCING MANAGER RN FOR PRISCILLA.
[2019-09-06] MEDS: ZOLPIDEM TARTRATE 5 MG TABLET PO PRN (20:59)
[2019-09-07] VITALS (11 sets, daily range): BP systolic 84–116; BP diastolic 54–74
[2019-09-07] MEDS: PIPERACILLIN /TAZOBACTAM 3.375 G in IV D5W 100 ML IV SCH ×3 (01:06→16:42)
--- NOTE | 2019-09-07 06:40 | NUR ---
ROSEANN RN NOTES AWAKE & RESPONSIVE. NOT IN ANY DISTRESS. NO SOB NOTED. DENIES ANY PAIN OR DISCOMFORT AT THIS TIME. ON TELE SR WITH BBB @ 74 WITH DOBUTAMINE DRIP INFUSING WELL. MONITORED ACCORDINGLY. CALL LIGHT WITHIN REACH. BED IN LOWEST POSITION. SR UP X 2 FOR SAFETY. WILL ENDORSE TO NEXT SHIFT.
[2019-09-07 06:54] LABS: BASOPHILS % (AUTO) 0.5 % (0.0-2.0); EOSINOPHILS % (AUTO) 2.3 % (0.0-6.0); HEMATOCRIT 40 % (33-45); HEMOGLOBIN 12.7 g/dL (11.5-14.8); MEAN CORPUSCULAR HGB CONC 32 g/dl (31.0-36.0); MEAN CORPUSCULAR VOLUME 77 fL (82-100); MONOCYTES # (AUTO) 0.6 /CMM (0.1-1.30); MONOCYTES % (AUTO) 10.5 % (2.0-12.0); NEUTROPHILS % (AUTO) 68.7 % (43.0-81.0); PLATELET COUNT (AUTO) 230 /CMM (150-450); RED BLOOD CELL COUNT(AUTO) 5.17 MIL/uL (4.0-5.2); WHITE BLOOD COUNT (AUTO) 5.8 K/uL (4.3-11.0)
--- NOTE | 2019-09-07 07:05 | NUR ---
ROSEANN RN OPENING NOTES RECEIVED PT LYING ON BED,ALERT/ORIENTED X4.ON TELE HR IS 68 NSR WITH BBB.ON ROOM AIR,TOLERATING WELL.NO SOB AND ACUTE DISTRESS NOTED.IV LINE IS ON RIGHT FA G22,SL AND LEFT FA G22 WITH IV DOBUTAMINE 7MCG/HR IS RUNNING,SITE IS CLEAN,DRY AND INTACT.NO INFILTRATION NOTED.NOTED WITH FLUID RESTRICTION IS 900MLS/DAY.PT MADE AWARE.BEDSIDE COMMODE IS AT BEDSIDE.SAFETY IS MAINTAINED AT ALL TIMES.CALL LIGHT IS WITHIN REACH.WILL CONTINUE TO MONITOR THE PT CLOSELY.
[2019-09-07 07:45] LABS: ALBUMIN 2.4 g/dL (3.4-5.0); CALCIUM, SERUM 7.9 mg/dL (8.5-10.1); CREATININE 1.1 mg/dL (0.6-1.3); MAGNESIUM 1.8 mg/dL (1.8-2.4); PHOSPHORUS 2.5 mg/dL (2.5-4.9); TOTAL PROTEIN, SERUM 5.6 g/dL (6.4-8.2)
[2019-09-07] MEDS: LEVOTHYROXINE SODIUM 50 MCG TABLET PO SCH (08:52)
[2019-09-07] MEDS: PANTOPRAZOLE 40 MG TABLET.DR PO SCH (08:52)
[2019-09-07 08:53] LABS: POTASSIUM 2.7 mmol/L (3.5-5.1)
[2019-09-07] MEDS: CARVEDILOL 6.25 MG TABLET PO SCH ×2 (08:54→21:14)
[2019-09-07] MEDS: ENOXAPARIN SODIUM 40 MG/0.4 ML DISP.SYRIN SQ SCH (08:55)
[2019-09-07] MEDS: DOBUTamine 500 MG in IV D5W 210 ML IV PRN ×2 (08:57→23:50)
--- NOTE | 2019-09-07 09:52 | NUR ---
ROSEANN RN NOTES POTASSIUM LEVEL IS 2.7,PAGED ,PCP,AWAITING FOR THE CALL BACK.
[2019-09-07] MEDS: POTASSIUM CHLORIDE 20 MEQ TAB.PRT.SR PO SCH ×2 (11:08→12:41)
[2019-09-07] MEDS: IPRATROPIUM NEB FS 0.5 MG/2.5 ML AMPUL.NEB NEB PRN (13:32)
[2019-09-07] MEDS: ALBUTEROL FS 2.5 MG/0.5 ML VIAL.NEB NEB PRN (13:32)
[2019-09-07] MEDS: SOD FERRIC GLUC 125 MG in IV NS 0.9% 100 ML IV SCH (13:53)
[2019-09-07 15:06] LABS: ANTI-MITOCHONDRIAL AB <20.0 Units (0.0-20.0)
[2019-09-07 15:18] LABS: CALCIUM, SERUM 7.9 mg/dL (8.5-10.1); CREATININE 1.4 mg/dL (0.6-1.3); POTASSIUM 3.4 mmol/L (3.5-5.1)
--- NOTE | 2019-09-07 18:30 | NUR ---
ROSEANN RN CLOSING NOTES PT IS LYING ON BED WITH IV DOBUTAMINE IS RUNNING ON RIGHT FA.PT IS ALERT/ORIENTED X4.RESPIRATION IS EVEN AND NONLABORED.NO SIGNIFICANT CHANGES NOTED IN THE SHIFT.WILL ENDORSE TO BOTTLE SELECTOR RN FOR PRISCILLA.
[2019-09-07] MEDS: ZOLPIDEM TARTRATE 5 MG TABLET PO PRN (21:14)
[2019-09-08] VITALS (7 sets, daily range): BP systolic 103–113; BP diastolic 65–71
[2019-09-08] MEDS: PIPERACILLIN /TAZOBACTAM 3.375 G in IV D5W 100 ML IV SCH ×3 (01:58→16:14)
--- NOTE | 2019-09-08 07:30 | NUR ---
Nurse rounds completed. Patient alert and oriented without complaints of pain. Safety measures in place. Call light within reach. IV site patent, clean, dry and intact.
[2019-09-08] MEDS: LEVOTHYROXINE SODIUM 50 MCG TABLET PO SCH (08:51)
[2019-09-08] MEDS: PANTOPRAZOLE 40 MG TABLET.DR PO SCH (08:51)
[2019-09-08] MEDS: ENOXAPARIN SODIUM 40 MG/0.4 ML DISP.SYRIN SQ SCH (08:52)
[2019-09-08] MEDS: CARVEDILOL 6.25 MG TABLET PO SCH ×2 (08:53→21:00)
[2019-09-08] MEDS: DOBUTamine 500 MG in IV D5W 210 ML IV PRN ×2 (09:46→22:37)
[2019-09-08] MEDS: SOD FERRIC GLUC 125 MG in IV NS 0.9% 100 ML IV SCH (14:10)
--- NOTE | 2019-09-08 20:00 | NUR ---
ROSEANN RN NOTE PT IN BED AWAKE. A/O X 4, NO SOB, NO DISTRESS NOTED.ON TELE MONITOR SR WITH BBB HR 83. PT C/O LEFT HAND IV LINE IS HURTING, MINOR SWELLING NOTED. DC'D THE LINE. STEPHANIE CHARGE NURSE TRIED TO INSERT BY NOT SUCCESSFUL, PT IS HARD STICK. CALLED MD STANFORD AND RECEIVED NEW ORDER FOR MID OR PICC LINE INSERTION. NURSING OB/GYN PHYSICIAN INFORMED. RFA #22 GETTING DOBUTAMINE AT 7 MCG ORDERED. NO S/S OF INFILTRATION NOTED. ICE PACK APPLIED ON LFA ON IV SITE. PT STATES "THAT FEELS GOOD". ALL NEEDS ATTENDED. SIDE RAILS UP X 2 AND CALL LIGHT WITHIN REACH. VSS. CONTINUE TO MONITOR HER.
--- NOTE | 2019-09-08 23:00 | NUR ---
ROSEANN RN NOTE NEETU MIDLINE NURSE INSERTED 20 G MIDLINE IN JANEY. RESUMED IVF ORDERED. NO DISTRESS NOTED.
[2019-09-09] VITALS: BP_SYST 112; BP_SYST 119; BP_DIAS 73; BP_DIAS 78
[2019-09-09] MEDS: PIPERACILLIN /TAZOBACTAM 3.375 G in IV D5W 100 ML IV SCH ×3 (00:45→17:29)
[2019-09-09] MEDS: ZOLPIDEM TARTRATE 5 MG TABLET PO PRN ×2 (01:24→21:38)
[2019-09-09 04:00] VITALS: BP_SYST 100; BP_SYST 104; BP_DIAS 53; BP_DIAS 66
[2019-09-09 06:38] LABS: BASOPHILS % (AUTO) 0.5 % (0.0-2.0); EOSINOPHILS % (AUTO) 2.5 % (0.0-6.0); HEMATOCRIT 40 % (33-45); HEMOGLOBIN 12.7 g/dL (11.5-14.8); LYMPHOCYTES # (AUTO) 1.4 /CMM (0.8-4.8); LYMPHOCYTES % (AUTO) 22.8 % (20.0-44.0); MEAN CORPUSCULAR HGB CONC 32 g/dl (31.0-36.0); MEAN CORPUSCULAR VOLUME 77 fL (82-100); MONOCYTES # (AUTO) 0.8 /CMM (0.1-1.30); MONOCYTES % (AUTO) 12.9 % (2.0-12.0); NEUTROPHILS # (AUTO) 3.6 /CMM (1.8-8.9); NEUTROPHILS % (AUTO) 61.3 % (43.0-81.0); PLATELET COUNT (AUTO) 221 /CMM (150-450)
--- NOTE | 2019-09-09 06:38 | NUR ---
ROSEANN RN NOTE PT IN BED ASLEEP, AROUSBLE. NO DISTRESS OR DISCOMFORT NOTED. DENIES PAIN. DOBUTMINE INFUSING WELL, NO S/S OF INFILTRATION NOTED. ON TELE SR WITH BBB HR 78. SIDE RAILS UP X 2 AND CALL LIGHT WITHIN REACH. WILL ENDORSE TO DAY SHIFT NURSE FOR CONTINUE TO CARE.
[2019-09-09 06:52] LABS: CALCIUM, SERUM 8.3 mg/dL (8.5-10.1); CREATININE 0.7 mg/dL (0.6-1.3); POTASSIUM 3.2 mmol/L (3.5-5.1)
[2019-09-09 07:06] LABS: THYROID STIMULATING HORMONE 7.761 uIU/mL (0.358-3.74)
[2019-09-09 08:00] VITALS: BP_SYST 106; BP_DIAS 74; BP_DIAS 79
--- NOTE | 2019-09-09 08:00 | NUR ---
ROSEANN/RN AM SHIFT INITIAL NOTES RECEIVED PT AT AWAKE SITTING IN BED, A/O X 4, DENIES ANY SYMPTOMS. ON ROOM AIR SATURATING @ 96%, RESPIRATIONS EVEN & UNLABORED, LUNG SOUNDS CLEAR. ON TELE WITH SINUS RHYTHM WITH BBB, HR 84. PT WAS NOT WEARING HER LIFE VEST, SO PLACED IT BACK ON HER. WITH ON GOING IV INFUSION OF DOBUTAMINE @ 7MCG/KG/MIN, MIDLINE PATENT WITH NO S/S OF INFECTION. PT IS COMFORTABLE, PLAN OF CARE EXPLAINED, PT VERBALIZED UNDERSTANDING. SCHEDULED AM MEDS TO BE GIVEN. CL WITHIN REACHED AND SAFETY MAINTAINED. ON GOING MONITORING.
[2019-09-09] MEDS: LEVOTHYROXINE SODIUM 50 MCG TABLET PO SCH (08:49)
[2019-09-09] MEDS: CARVEDILOL 6.25 MG TABLET PO SCH ×2 (08:50→21:34)
[2019-09-09] MEDS: PANTOPRAZOLE 40 MG TABLET.DR PO SCH (08:51)
[2019-09-09] MEDS: ENOXAPARIN SODIUM 40 MG/0.4 ML DISP.SYRIN SQ SCH (08:53)
--- NOTE | 2019-09-09 09:30 | NUR ---
ROSEANN/RN ROUNDS - DR. ROWLAND PT SEEN & EXAMINED BY DR. ROWLAND WITH BE AT BEDSIDE. NO NEW ORDER RECEIVED AT THIS TIME.
[2019-09-09] MEDS: POTASSIUM CHLORIDE 20 MEQ TAB.PRT.SR PO SCH ×2 (11:48→13:43)
[2019-09-09 12:00] VITALS: BP 113/78
[2019-09-09] MEDS: DOBUTamine 500 MG in IV D5W 210 ML IV PRN (12:22)
--- NOTE | 2019-09-09 14:29 | NUR ---
ROSEANN/RN PT EVAL PT SEEN BY PHYSICAL THERAPIST FOR EVALUATION. PT ABLE TO WALK WITH A STEADY GAIT UNASSISTED ON ROOM AIR. WALKED 300 FEET.
[2019-09-09 16:00] VITALS: BP_SYST 107; BP_SYST 141; BP_DIAS 42; BP_DIAS 71
[2019-09-09] MEDS: SOD FERRIC GLUC 125 MG in IV NS 0.9% 100 ML IV SCH (16:03)
--- NOTE | 2019-09-09 19:30 | NUR ---
RN NOTES, RECEIVED PATIENT IN BED AWAKE A/O X3 ABLE TO VERBALIZED NEEDS AND CONCERNS, AT ROOM AIR, BREATHING EVEN AND UNLABORED, NO SOB/ACUTE DISTRESS NOTED AT THIS TIME, DENIES PAIN OR DISCOMFORT, WITH OPTIMAL O2 SAT LEVEL, SINUS RHYTHM WITH BBB, IN THE TELE MONITOR WITH HR HR 8OS, WEARING HER LIFE VEST, MIDLINE PATENT WITH NO S/S OF INFECTION, JANEY ON DOBUTAMINE @ 7MCG/KG/MIN, INFUSING WELL AND PATIENT TOLERATED WELL, CALL LIGHT W/I REACH, WILL CONTINUE TO MONITOR CLOSELY.
--- NOTE | 2019-09-09 19:39 | NUR ---
ROSEANN/RN AM SHIFT END NOTES ALL NEEDS MET, NO ACUTE CHANGE OF CONDITION NOTED DURING THE SHIFT. PT ENDORSED TO PM NURSE TO CONTINUE CARE. CL WITHIN REACHED AND SAFETY MAINTAINED.
[2019-09-09 20:00] VITALS: BP 119/80
[2019-09-10] VITALS: BP 119/78
[2019-09-10] MEDS: PIPERACILLIN /TAZOBACTAM 3.375 G in IV D5W 100 ML IV SCH ×3 (00:43→17:34)
[2019-09-10 04:00] VITALS: BP 104/53
--- NOTE | 2019-09-10 06:45 | NUR ---
RN NOTES, RECEIVED PATIENT IN BED AWAKE A/O X3 ABLE TO VERBALIZED NEEDS AND CONCERNS, AT ROOM AIR, BREATHING EVEN AND UNLABORED, NO SOB/ACUTE DISTRESS NOTED AT THIS TIME, DENIES PAIN OR DISCOMFORT, WITH OPTIMAL O2 SAT LEVEL, SINUS RHYTHM WITH BBB, IN THE TELE MONITOR WITH HR HR 70-8OS, WEARING HER LIFE VEST, S/P DUBUTAMINE ENDED AT 2300 LAST NIGHT ORDERED, NO SIGNIFICANT CHANGE IN CONDITION DURING THE NIGHT, CALL LIGHT W/I REACH, WILL ENDORSE CONTINUITY OF CARE TO ONCOMING NURSE.
[2019-09-10 06:52] LABS: CALCIUM, SERUM 8.1 mg/dL (8.5-10.1); CREATININE 0.8 mg/dL (0.6-1.3); POTASSIUM 3.7 mmol/L (3.5-5.1)
--- NOTE | 2019-09-10 07:00 | NUR ---
ROSEANN RN OPENING NOTES RECEIVED PT LYING ON BED,ALERT/ORIENTED X4.ON TELE HR IS 72 WITH NSR.ON ROOM AIR,TOLERATING WELL.NO SOB AND ACUTE DISTRESS NOTED.NOTED WITH IV DOBUTAMINE IS DONE.MID LINE IS ON RIGHT UPPER ARM,SITE IS CLEAN,DRY AND INTACT.NO INFILTRATION NOTED.SAFETY IS MAINTAINED AT ALL TIMES,CALL LIGHT IS WITHIN REACH.WILL CONTINUE TO MONITOR THE PT CLOSELY.
[2019-09-10 08:00] VITALS: BP 96/72
[2019-09-10] MEDS: CARVEDILOL 6.25 MG TABLET PO SCH ×2 (09:00→20:31)
[2019-09-10] MEDS: LEVOTHYROXINE SODIUM 50 MCG TABLET PO SCH (09:01)
[2019-09-10] MEDS: PANTOPRAZOLE 40 MG TABLET.DR PO SCH (09:02)
[2019-09-10] MEDS: ENOXAPARIN SODIUM 40 MG/0.4 ML DISP.SYRIN SQ SCH (09:05)
[2019-09-10 12:00] VITALS: BP 88/62
[2019-09-10] MEDS: SOD FERRIC GLUC 125 MG in IV NS 0.9% 100 ML IV SCH (13:33)
[2019-09-10 16:00] VITALS: BP 123/107
--- NOTE | 2019-09-10 18:57 | NUR ---
TECHNICAL MGR CLOSING NOTES PT IS LYING ON BED,SLEEPING.ON IV ANTIBIOTICS IS RUNNING.ON ROOM AIR,TOLERATING WELL.RESPIRATION IS EVEN AND NONLABORED.IV LINE SI IN PLACE.NO SIGNIFICANT CHANGES NOTED IN THE SHIFT.WILL ENDORSE TO PRINT SHOP CHIEF CLERK RN FOR PRISCILLA.
--- NOTE | 2019-09-10 19:16 | NUR ---
ACDS BLOCK 1 OPERATOR OPENING NOTES RECEIVED PATIENT RESTING IN BED, A/OX4. PT DENIES ANY PAIN. ON TELE MONITOR NSR WITH HR 80'S. ON ROOM AIR, TOLERATING WELL. NO SOB AND ACUTE DISTRESS NOTED. IV SITE RIGHT UPPER ARM MIDLINE, SITE CLEAN, DRY AND INTACT. IV ANTIBIOTIC RUNNING ORDERED. NO INFILTRATION NOTED. LIFE VEST NOTED ON PATIENT. SAFETY MEASURES IN PLACE AND MAINTAINED AT ALL TIMES; CALL LIGHT WITHIN REACH, SIDE RAILS UP X2, HOB ELEVATED/ WILL CONTINUE TO MONITOR THE PT CLOSELY.
[2019-09-10 20:00] VITALS: BP 104/74
[2019-09-10] MEDS: ZOLPIDEM TARTRATE 5 MG TABLET PO PRN (20:32)
[2019-09-11] VITALS: BP 101/70
[2019-09-11] MEDS: PIPERACILLIN /TAZOBACTAM 3.375 G in IV D5W 100 ML IV SCH ×4 (00:44→16:19)
[2019-09-11 04:00] VITALS: BP 101/76
--- NOTE | 2019-09-11 07:05 | NUR ---
SLICE PLUG CUTTER OPERATOR OPENING NOTES RECEIVED PT LYING ON BED,ALERT/ORIENTED X4.ON TELE HR IS 80 WITH NSR.ON ROOM AIR,TOLERATING WELL.NO SOB AND ACUTE DISTRESS NOTED.MID LINE IS ON RIGHT UPPER ARM,SITE IS CLEAN,DRY AND INTACT.NO INFILTRATION NOTED.SAFETY IS MAINTAINED AT ALL TIMES,CALL LIGHT IS WITHIN REACH.WILL CONTINUE TO MONITOR THE PT CLOSELY.
--- NOTE | 2019-09-11 07:20 | NUR ---
DRIVER EDUCATION ROAD INSTRUCTOR CLOSING NOTES PT KEPT CLEAN, DRY, AND COMFORTABLE. NOT IN ANY DISTRESS AT THE MOMENT. NO ACUTE CHANGES THROUGHOUT SHIFT. PT RESTING IN BED, ON RA, TOLERATING WELL. SAFETY MEASURES MAINTAINED. ENDORSED TO AM RN FOR PRISCILLA.
[2019-09-11 08:00] VITALS: BP 111/85
[2019-09-11] MEDS: PANTOPRAZOLE 40 MG TABLET.DR PO SCH (08:14)
[2019-09-11] MEDS: LEVOTHYROXINE SODIUM 50 MCG TABLET PO SCH (08:14)
[2019-09-11] MEDS: CARVEDILOL 6.25 MG TABLET PO SCH ×2 (08:14→21:00)
[2019-09-11] MEDS: ENOXAPARIN SODIUM 40 MG/0.4 ML DISP.SYRIN SQ SCH ×2 (08:23→10:42)
--- NOTE | 2019-09-11 10:42 | NUR ---
CREATIVE INTERN NOTES PT REFUSED IV ZOSYN AND LOVENOX IN AM,EXPLAINED THE RISK AND BENEFITS X3,STILL REFUSED.TAMY ALTAMIRANO MADE AWARE.
[2019-09-11 12:00] VITALS: BP 96/74
[2019-09-11] MEDS: SOD FERRIC GLUC 125 MG in IV NS 0.9% 100 ML IV SCH (14:33)
[2019-09-11 16:00] VITALS: BP 94/64
[2019-09-11] MEDS ORDERED: LEVO50TA PO (17:06)
[2019-09-11] MEDS ORDERED: CARV6.252 PO (17:06)
--- NOTE | 2019-09-11 19:13 | NUR ---
CUT FILE CLERK CLOSING NOTES PT IS SITTING ON THE BED,ALERT/ORIENTED X4.FRIEND IS AT BEDSIDE.RESPIRATION IS EVEN AND NONLABORED.ENDORSED TO HOME CARE SPECIALIST RN TO FOLLOW UP THE DISCHARGE PROCESS AND REMOVE THE MIDLINE.
[2019-09-11 20:00] VITALS: BP_SYST 101; BP_SYST 105; BP_DIAS 68; BP_DIAS 72
--- NOTE | 2019-09-11 20:00 | NUR ---
ASSOCIATE EMBALMER/FUNERAL DIRECTOR NOTE: PATIENT RESTING IN BED, NO ACUTE DISTRESS NOTED. BREATHING EVEN AND UNLABORED, NO SOB NOTED. MIDLINE TO JANEY IN PLACE. PATIENT TO BED DISCHARGED TONIGHT, PATIENT DECIDED TO GO TO BOARD AND CARE THAT HAS BEEN SET UP INSTEAD OF GOING TO FRIENDS HOUSE. DISCHARGE PAPERWORK PRINTED AND TO BE SIGNED. MIDLINE TO BE REMOVED. CM INFORMED TO CONTACT [employer] TO REVENUE STAMP CUTTER PATIENT. BED LOCKED AND IN LOWEST POSITION, CALL LIGHT IN REACH, WILL CONTINUE TO MONITOR.
--- NOTE | 2019-09-11 20:15 | NUR ---
nursing calling due to patient transportation from board and care did not came. Called Shabbir- admin/steam press tender of the [facility] care [phone] and left message regarding patient shredder picker time. Addendum: 09/12/19 at 0004 by ARNULFO MARTINEZ RN Amended: Links added.
--- NOTE | 2019-09-11 23:32 | NUR ---
RN NOTES PATIENT SUPPOSED TO BE DISCHARGED TO [facility] AND CARE [facility] BUT TRANSPORTATION STILL NOT HERE. SPOKE WITH TEXTILE BROKERARNULFO EARLIER AND SHE SAID SHE WILL CALL AGAIN TO MAKE SURE THEY'RE COMING. CALLED TEXTILE BROKERARNULFO AGAIN BECAUSE PATIENT STILL HASN'T BEEN PICKED UP AFTER EARLIER CONVERSATION WITH TEXTILE BROKER. LEFT VOICEMAIL & AWAITING CALL BACK @ THIS TIME.
[2019-09-12] VITALS: BP 102/70
[2019-09-12 00:10] VITALS: BP 102/70
[2019-09-12] MEDS: PIPERACILLIN /TAZOBACTAM 3.375 G in IV D5W 100 ML IV SCH (01:22)
[2019-09-12 04:00] VITALS: BP 91/62
--- NOTE | 2019-09-12 06:10 | NUR ---
LOOM SETTER NOTE: PATIENT RESTING IN BED, NO ACUTE DISTRESS NOTED. BREATHING EVEN AND UNLABORED, NO SOB NOTED. MIDLINE TO JANEY IN PLACE. BED LOCKED AND IN LOWEST POSITION, CALL LIGHT IN REACH, WILL ENDORSE TO DAY NURSE TO CONTINUE WITH PLAN OF CARE.
--- NOTE | 2019-09-12 07:28 | NUR ---
DANA DC NOTE PATIENT D/C PAPERWORK DONE PER PROTECTOR PLATE ATTACHER. PICKED UP BY [facility] REP [place]. MIDLINE REMOVED, CATH INTACT, PRESSURE DRESSING APPLIED. REMINDED TO DESIGN TRANSFERRER MEDS AT PHARMACY Addendum: 09/12/19 at 0737 by INGRID MARTIN RN NO SOB NOTED. PATIENT APPEARS STABLE
== END 2019-09-12 07:30 | disposition home or self-care (01) | DRG 291 ==
LOC: ER 01:42 → TELE 03:46 → TELE-TD 09-05 10:28 → TELE1 09-10 10:06
PROVIDERS: ADMIT Family Medicine; ATTEND Nurse Practitioner Acute Care
DX: I50.23 Acute on chronic systolic (congestive) heart failure (principal); N17.0 Acute kidney failure with tubular necrosis; E87.1 Hypo-osmolality and hyponatremia; I42.0 Dilated cardiomyopathy; R18.8 Other ascites; Z98.82 Breast implant status; I27.20 Pulmonary hypertension, unspecified; E06.3 Autoimmune thyroiditis; E87.6 Hypokalemia; K76.0 Fatty (change of) liver, not elsewhere classified; Z87.891 Personal history of nicotine dependence; E03.9 Hypothyroidism, unspecified; I34.0 Nonrheumatic mitral (valve) insufficiency; F15.90 Other stimulant use, unspecified, uncomplicated; E11.9 Type 2 diabetes mellitus without complications; R74.0 Nonspecific elevation of levels of transaminase and lactic acid dehydrogenase [LDH]; K80.20 Calculus of gallbladder without cholecystitis without obstruction; K76.1 Chronic passive congestion of liver; Z59.0 Homelessness
CPT/HCPCS: 36415; 71045-TC; 78226; 80048-TC; 80053-TC; 80074; 80076-TC; 80305; 82105; 82140-TC; 82150-TC; 82247-TC; 82248-TC; 82728-TC; 82784; 82977-TC; 83516; 83540-TC; 83690-TC; 83735-TC; 83880; 84100-TC; 84439-TC; 84443-TC; 84484-TC; 85025-TC; 85610-TC; 85730-TC; 86225; 86235; 86694; 86695; 86696; 86706; 86787; 87081-TC; 87086-TC; 87340; 93307-TC; 93976-TC; 94799-TC; 97116-TC; 97530-TC; A9537; G0378; G0480; J1250; J1650; J1940; J2405; J2543; J2916; J7030; J7060

== ENCOUNTER 2019-11-18 00:53 | Inpatient (IN) | payer MEDICAID ==
[~2019-11-18] VITALS: Ht 175.3 cm; Wt 77.1 kg
[~2019-11-18 00:53] MED LIST: CARV6.252 PO; LEVO50TA PO
--- NOTE | 2019-11-18 01:11 | NUR ---
PT AAOX4. BIB SELF C/O SOB STARTED 3PM, HX OF CHF. PT ABD SWOLLEN. PT PLACED ON MONITOR AND PULSE OX. SAT 99% ON ROOM AIR. PT STATES SHE HAS HX OF CHF AND HAS SOB ON AND OFF. NO ACUTE DISTRESS NOTED UPON ASSESSMENT. MD AT BEDSIDE FOR EVAL.
[2019-11-18] MEDS ORDERED: ALBUTEROL FS 2.5 MG/3 ML VIAL.NEB ONE ×2 (01:18→02:23)
[2019-11-18 01:21] LABS: BASOPHILS # (AUTO) 0.1 /CMM (0.0-0.2); BASOPHILS % (AUTO) 0.9 % (0.0-2.0); EOSINOPHILS % (AUTO) 0.5 % (0.0-6.0); HEMATOCRIT 47 % (33-45); HEMOGLOBIN 14.9 g/dL (11.5-14.8); LYMPHOCYTES # (AUTO) 1.5 /CMM (0.8-4.8); LYMPHOCYTES % (AUTO) 21.6 % (20.0-44.0); MEAN CORPUSCULAR HGB CONC 32 g/dl (31.0-36.0); MEAN CORPUSCULAR VOLUME 83 fL (82-100); MONOCYTES # (AUTO) 0.6 /CMM (0.1-1.30); MONOCYTES % (AUTO) 8.1 % (2.0-12.0); NEUTROPHILS # (AUTO) 4.8 /CMM (1.8-8.9); NEUTROPHILS % (AUTO) 68.9 % (43.0-81.0); PLATELET COUNT (AUTO) 236 /CMM (150-450); RED BLOOD CELL COUNT(AUTO) 5.64 MIL/uL (4.0-5.2)
[2019-11-18] MEDS ORDERED: NITROGLYCERIN 0.4 MG/TAB BOTTLE ONE (01:21)
[2019-11-18] MEDS ORDERED: ENALAPRILAT DIHYD. (2.5MG/ML) 1.25 MG/ML VIAL IV ONE ×2 (01:21→01:30)
[2019-11-18] MEDS ORDERED: FUROSEMIDE 40 MG/4 ML VIAL ONE (01:21)
[2019-11-18] MEDS ORDERED: NITROGLYCERIN PACKET 1 GM PACKET ONE (01:22)
[2019-11-18] MEDS ORDERED: FUROSEMIDE 40 MG/4 ML VIAL IV ONE (01:30)
[2019-11-18] MEDS ORDERED: NITROGLYCERIN 0.4 MG/TAB BOTTLE SL ONE ×2 (01:30→12:00)
[2019-11-18] MEDS ORDERED: NITROGLYCERIN PACKET 1 GM PACKET TD ONE (01:30)
[2019-11-18] MEDS ORDERED: ALBUTEROL FS 2.5 MG/3 ML VIAL.NEB NEB ONE (01:30)
[2019-11-18 01:35] LABS: CALCIUM, SERUM 9.3 mg/dL (8.5-10.1); CARBON DIOXIDE 30 mmol/L (21-32); CHLORIDE 92 mmol/L (98-107); CREATININE 1.3 mg/dL (0.6-1.3); GLUCOSE 123 mg/dL (74-106); POTASSIUM 3.8 mmol/L (3.5-5.1); SODIUM SERUM 131 mmol/L (136-145); UREA NITROGEN, BLOOD 39 mg/dL (7-18)
--- NOTE | 2019-11-18 01:40 | NUR ---
BP 100/61 VASOTEC AND NITRO PATCH PLACED. MD NOTIFIED.
[2019-11-18 01:47] LABS: ALANINE AMINOTRANSFERASE 33 U/L (12-78); ALBUMIN 3.1 g/dL (3.4-5.0); ALKALINE PHOSPHATASE 97 U/L (46-116); ASPARTATE AMINOTRANSFERASE 48 U/L (15-37); B-TYPE NATRIURETIC PEPTIDE 9794 PG/ML (0-125); BILIRUBIN,DIRECT 1.7 mg/dL (0.0-0.2); BILIRUBIN,TOTAL 2.7 mg/dL (0.2-1.0); TOTAL PROTEIN, SERUM 7.2 g/dL (6.4-8.2)
--- NOTE | 2019-11-18 02:23 | NUR ---
PT RECIEVING ANOTHER BREATHING TREATMENT.
[2019-11-18] MEDS ORDERED: ALBUTEROL FS 2.5 MG/0.5 ML VIAL.NEB NEB ONE (02:30)
--- NOTE | 2019-11-18 02:48 | NUR ---
ROOM GIVEN [id number]
[2019-11-18] MEDS ORDERED: FURO40TA5 PO (02:55)
--- NOTE | 2019-11-18 03:01 | NUR ---
REPORT GIVEN TO SOCORRO CORTEZ FOR PRISCILLA
--- NOTE | 2019-11-18 03:25 | NUR ---
ROVING WEIGHT GAUGER NOTES 032 RECEIVED REPORT FROM DANA ENAMORADO FROM ER AT 0300. PATIENT ARRIVED ON THE UNIT AT 0320 VIA GURNEY. PATIENT WEIGHS 170.5 LBS. PATIENT IS A/O X 4. PATIENT ON ROOM AIR, NO SIGNS OF DISTRESS. ON TELE MONITOR WITH READING OF NSR WITH PVC WITH BBB 92. VITALS UPON ADMISSION DOCUMENTED. PATIENT AMBULATORY. PATIENT SKIN INTACT. BELONGINGS CHECKLIST DONE BY MILI VENTURA CNA. PATIENT HAS FLU VACCINE AUG 2019. SAFETY PRECAUTIONS IMPLEMENTED; CALL LIGHT WITHIN REACH, BED LOWEST POSITION, BED LOCKED, BILATERAL UPPER SIDE RAILS UP. PATIENT'S HOB IS SEMI FOWLERS. WILL CONTINUE TO MONITOR.
[2019-11-18 03:50] VITALS: BP 108/81
[2019-11-18 04:00] VITALS: BP_SYST 108; BP_SYST 82; BP_DIAS 58; BP_DIAS 81
[2019-11-18] MEDS ORDERED: ACETAMINOPHEN 325 MG TABLET PO PRN (04:00)
[2019-11-18] MEDS ORDERED: Z GUARD REMEDY 2 OZ OINT TP PRN (04:00)
[2019-11-18] MEDS ORDERED: ONDANSETRON HCL/PF 4 MG/2 ML VIAL IVP PRN (04:00)
[2019-11-18] MEDS ORDERED: BUMETANIDE INJ 6 MG in IV NS 0.9% 36 ML IV ONE (04:00)
[2019-11-18] MEDS ORDERED: BUMETANIDE INJ 0.25 MG/ML VIAL ONE ×3 (04:12→04:32)
--- NOTE | 2019-11-18 06:25 | NUR ---
RN NOTES CORRECTION: TELE READING SR 91
--- NOTE | 2019-11-18 06:25 | NUR ---
RN CLOSING NOTES PATIENT IS CURRENTLY ASLEEP, EASILY AWAKENED. TELE READING SR 83. NO SIGNS OF DISTRESS. NO SIGNS OF FACIAL GRIMACING INDICATING PAIN OR DISCOMFORT AT THIS TIME. IV SITE RAC #[address], INTACT AND PATENT, NO SIGNS OF INFECTION/INFILTRATION. PATIENT KEPT CLEAN DRY, AND COMFORTABLE. ALL NURSING NEEDS MET AT THIS TIME. ALL DUE MEDS GIVEN ORDERED WITH NO ADVERSE EFFECTS. SAFETY PRECAUTIONS IMPLEMENTED; CALL LIGHT WITHIN REACH, BED LOW, BED LOCKED, BILATERAL UPPER SIDE RAILS UP. BED ALARM ON. WILL ENDORSE TO DAY SHIFT NURSE FOR CONTINUITY OF CARE.
[2019-11-18 07:12] LABS: BASOPHILS # (AUTO) 0.1 /CMM (0.0-0.2); BASOPHILS % (AUTO) 1.3 % (0.0-2.0); EOSINOPHILS % (AUTO) 0.2 % (0.0-6.0); HEMATOCRIT 43 % (33-45); LYMPHOCYTES % (AUTO) 15.4 % (20.0-44.0); MEAN CORPUSCULAR HGB CONC 32 g/dl (31.0-36.0); MEAN CORPUSCULAR VOLUME 82 fL (82-100); MONOCYTES # (AUTO) 0.6 /CMM (0.1-1.30); MONOCYTES % (AUTO) 8.8 % (2.0-12.0); NEUTROPHILS # (AUTO) 4.9 /CMM (1.8-8.9); NEUTROPHILS % (AUTO) 74.3 % (43.0-81.0); PLATELET COUNT (AUTO) 218 /CMM (150-450); RED BLOOD CELL COUNT(AUTO) 5.32 MIL/uL (4.0-5.2); WHITE BLOOD COUNT (AUTO) 6.5 K/uL (4.3-11.0)
[2019-11-18 07:22] LABS: ALBUMIN 2.7 g/dL (3.4-5.0); BILIRUBIN,TOTAL 2.4 mg/dL (0.2-1.0); CALCIUM, SERUM 8.7 mg/dL (8.5-10.1); CREATININE 1.3 mg/dL (0.6-1.3); MAGNESIUM 1.9 mg/dL (1.8-2.4); PHOSPHORUS 4.1 mg/dL (2.5-4.9); TOTAL PROTEIN, SERUM 6.4 g/dL (6.4-8.2)
--- NOTE | 2019-11-18 08:20 | NUR ---
ms rn received on bed, awake,alert,oriented x4,not in any form of ditress,respirations even and unlabored,no sob noted, lungs are diminished, abdomen soft,positive bowel sounds,denies pain at this time,all needs attended.
[2019-11-18 08:24] VITALS: BP 100/73
--- NOTE | 2019-11-18 08:30 | NUR ---
ms bach breakfast served,due meds given,tolerated well.
[2019-11-18] MEDS: LEVOTHYROXINE SODIUM 50 MCG TABLET PO SCH (11:11)
[2019-11-18] MEDS: CARVEDILOL 6.25 MG TABLET PO SCH ×2 (11:12→22:54)
[2019-11-18] MEDS: FUROSEMIDE 40 MG/4 ML VIAL IV SCH ×3 (11:12→18:30)
[2019-11-18] MEDS: POTASSIUM CHLORIDE 20 MEQ TAB.PRT.SR PO SCH ×3 (11:12→12:40)
[2019-11-18] MEDS: ENOXAPARIN SODIUM 40 MG/0.4 ML DISP.SYRIN SQ SCH (11:20)
[2019-11-18] MEDS ORDERED: IOHEXOL-350 100 ML VIAL IV ONE (11:46)
[2019-11-18] MEDS ORDERED: IV NS 0.9% 250 ML IV ONE (11:47)
[2019-11-18] MEDS ORDERED: METOPROLOL TARTRATE INJ 5 MG/5 ML AMPUL IVP PRN (12:00)
[2019-11-18] MEDS ORDERED: IV NS 0.9% 500 ML IV PRN (12:00)
--- NOTE | 2019-11-18 14:00 | NUR ---
ms rn went down to cta.
[2019-11-18 16:04] VITALS: BP 90/76
--- NOTE | 2019-11-18 16:43 | NUR ---
ms rn was seen by cardio w/ orders made and carried out.
--- NOTE | 2019-11-18 19:20 | NUR ---
TELE/RN NOTES RECEIVED PT. SITTING UP IN BED. PT. IS AWAKE, ALERT AND ORIENTED X4. BREATHING EVEN AND UNLABORED ON ROOM AIR. NOS OB, RESPIRATORY DISTRESS OR COMPLAINTS OF PAIN NOTED AT THIS TIME. PT. WITH EXTERNAL TUBE SIZER AND CUTTER OPERATOR PRESENT AND INTACT. CURRENT RHYTHM = SINUS RHYTHM WITH BB HR 87. PT. WITH RIGHT AC 20 GAUGE IV SALINE LOCK PRESENT, PATENT AND INTACT. BED LOCKED AND IN LOWEST POSITION, SIDE RAILS UP X2, CALL LIGHT WITHIN REACH, WILL CONTINUE TO MONITOR.
[2019-11-18 20:00] VITALS: BP 103/70
[2019-11-18 22:51] VITALS: BP 107/64
--- NOTE | 2019-11-19 06:32 | NUR ---
TELE/RN NOTES PT. IS LYING IN BED RESTING. BREATHING EVEN AND UNLABORED ON ROOM AIR. NOS OB, RESPIRATORY DISTRESS OR COMPLAINTS OF PAIN NOTED AT THIS TIME. PT. WITH EXTERNAL ORTHOPEDIC RADIOLOGIC TECHNOLOGIST PRESENT AND INTACT. CURRENT RHYTHM = SINUS RHYTHM WITH BBB AND PVCS HR 92. PT. WITH RIGHT AC 20 GAUGE IV SALINE LOCK PRESENT, PATENT AND INTACT. ALL PT. NEEDS MET. BED LOCKED AND IN LOWEST POSITION, SIDE RAILS UP X2, CALL LIGHT WITHIN REACH, WILL ENDORSE TO DAYSHIFT NURSE FOR CONTINUITY OF CARE.
--- NOTE | 2019-11-19 07:59 | NUR ---
LAMP SHADE ASSEMBLER OPENING NOTE PATIENT IN BED RESTING COMFORTABLY. PATIENT IN NO ACUTE DISTRESS. NO SOB NOTED. PATIENT BREATHING IS EVEN AND UNLABORED. PATIENT BED ALARM IS ON. PATIENT SAFETY PRECAUTIONS IN PLACE. PATIENT ON CARDIAC MONITORING READING SINUS RHYTHM WITH BBB HR 80. PATIENT BED IS LOCKED AND IN LOWEST POSITION. CALL LIGHT WITHIN REACH. WILL CONTINUE TO MONITOR.
[2019-11-19 08:00] VITALS: BP 105/73
[2019-11-19 08:09] LABS: BASOPHILS % (AUTO) 0.6 % (0.0-2.0); EOSINOPHILS % (AUTO) 2.3 % (0.0-6.0); HEMATOCRIT 44 % (33-45); HEMOGLOBIN 13.7 g/dL (11.5-14.8); LYMPHOCYTES # (AUTO) 1.2 /CMM (0.8-4.8); LYMPHOCYTES % (AUTO) 21.3 % (20.0-44.0); MEAN CORPUSCULAR HGB CONC 32 g/dl (31.0-36.0); MEAN CORPUSCULAR VOLUME 82 fL (82-100); MONOCYTES # (AUTO) 0.4 /CMM (0.1-1.30); MONOCYTES % (AUTO) 7.8 % (2.0-12.0); NEUTROPHILS # (AUTO) 3.9 /CMM (1.8-8.9); PLATELET COUNT (AUTO) 217 /CMM (150-450); RED BLOOD CELL COUNT(AUTO) 5.28 MIL/uL (4.0-5.2); WHITE BLOOD COUNT (AUTO) 5.8 K/uL (4.3-11.0)
[2019-11-19] MEDS: LEVOTHYROXINE SODIUM 50 MCG TABLET PO SCH (08:20)
[2019-11-19] MEDS: ENOXAPARIN SODIUM 40 MG/0.4 ML DISP.SYRIN SQ SCH (08:21)
[2019-11-19] MEDS: CARVEDILOL 6.25 MG TABLET PO SCH ×2 (08:22→21:36)
[2019-11-19 08:24] LABS: ALBUMIN 2.8 g/dL (3.4-5.0); BILIRUBIN,TOTAL 2.1 mg/dL (0.2-1.0); CALCIUM, SERUM 8.9 mg/dL (8.5-10.1); CREATININE 1.3 mg/dL (0.6-1.3); POTASSIUM 3.9 mmol/L (3.5-5.1); TOTAL PROTEIN, SERUM 6.6 g/dL (6.4-8.2)
[2019-11-19 12:00] VITALS: BP 120/70
[2019-11-19] MEDS: FUROSEMIDE 100 MG/10 ML VIAL IV SCH ×3 (13:47→21:42)
[2019-11-19 16:00] VITALS: BP 107/74
--- NOTE | 2019-11-19 16:53 | NUR ---
METAL FLOORING INSTALLER NOTE PATIENT COMPLAINS OF NO SLEEPING WELL FOR THREE TO FOUR DAYS. INFORMED [address]. TONY PER MD ORDER FOR RESTORIL 7.5MG HS PRN. SPOKE WITH DR. ROWLAND, PER TO ASK DR. TONY FOR PSYCH EVALUATION FOR INCREASED ANXIETY. PER DR. CECILY MISHRA FOR PSYCH EVALUATION CONSULT.
[2019-11-19] MEDS ORDERED: TEMAZEPAM 7.5 MG CAPSULE PO PRN (17:00)
--- NOTE | 2019-11-19 18:00 | NUR ---
MONORAIL OPERATOR NOTE PER LAB HIV ANTIBODY/ANTIGEN TEST ORDERED BY LAB AFTER MISCELLANEOUS ORDER FOR HIV LAB TEST PUT IN BY ME.
--- NOTE | 2019-11-19 18:49 | NUR ---
GAUGE MAKER APPRENTICE CLOSING NOTE PATIENT IN BED RESTING COMFORTABLY. PATIENT BREATHING IS EVEN AND UNLABORED. PATIENT IN NO ACUTE DISTRESS. NO SOB NOTED. PATIENT ON CARDIAC MONITORING READING SINUS RHYTHM HR 92 WITH BBB AND PVCS. PATIENT KEPT CLEAN, DRY AND COMFORTABLE THROUGHOUT SHIFT. NEEDS AND CONCERNS ADDRESSED. SAFETY PRECAUTIONS IN PLACE. PATIENT BED IS LOCKED AND IN LOWEST POSITION. CALL LIGHT WITHIN REACH. WILL ENDORSE CARE TO PM SHIFT FOR PRISCILLA.
--- NOTE | 2019-11-19 19:10 | NUR ---
CHANGE OF SHIFT REPORT Patient in bed, awake, A/O x4 Independent with ADL. Denies shortness of breath, tolerating RA. Awaiting transfer to higher level of care for implant ICD per report. Safety measure in place.
[2019-11-19 20:00] VITALS: BP 105/72
[2019-11-20] VITALS: BP 157/67
[2019-11-20 04:00] VITALS: BP 108/82
--- NOTE | 2019-11-20 06:18 | NUR ---
END OF SHIFT REPORT Patient in bed, A/O x3 Sinus rhythm with BBB in the Tele monitor. Patient anxious and not able to sleep last night, denies shortness of breath, tolerating RA. Able to calm down, given PRN Restoril slept < 6 hours. Plan for implant BiV ICD, pending transfer to higher level of care, CM following.
[2019-11-20 06:41] LABS: CALCIUM, SERUM 8.8 mg/dL (8.5-10.1); CREATININE 1.1 mg/dL (0.6-1.3); MAGNESIUM 1.9 mg/dL (1.8-2.4); PHOSPHORUS 3.4 mg/dL (2.5-4.9); POTASSIUM 4.2 mmol/L (3.5-5.1); TOTAL PROTEIN, SERUM 6.8 g/dL (6.4-8.2)
[2019-11-20 06:45] LABS: BASOPHILS % (AUTO) 0.7 % (0.0-2.0); EOSINOPHILS % (AUTO) 1.4 % (0.0-6.0); HEMATOCRIT 44 % (33-45); LYMPHOCYTES # (AUTO) 1.3 /CMM (0.8-4.8); LYMPHOCYTES % (AUTO) 22.8 % (20.0-44.0); MEAN CORPUSCULAR HGB CONC 32 g/dl (31.0-36.0); MEAN CORPUSCULAR VOLUME 82 fL (82-100); MONOCYTES # (AUTO) 0.4 /CMM (0.1-1.30); NEUTROPHILS # (AUTO) 3.8 /CMM (1.8-8.9); NEUTROPHILS % (AUTO) 68.1 % (43.0-81.0); PLATELET COUNT (AUTO) 214 /CMM (150-450); RED BLOOD CELL COUNT(AUTO) 5.42 MIL/uL (4.0-5.2); WHITE BLOOD COUNT (AUTO) 5.6 K/uL (4.3-11.0)
--- NOTE | 2019-11-20 07:15 | NUR ---
MORALE OFFICER NOTES PATIENT IN ALERT ORIENTED X 3. NO ACUTE DISTRESS NOTED, BREATHING UNLABORED. SAFETY MEASURES IN PLACE. CALL LIGHT WITHIN REACH. WILL CONTINUE TO MONITOR ACCORDINGLY.
[2019-11-20] MEDS: LEVOTHYROXINE SODIUM 50 MCG TABLET PO SCH (07:49)
[2019-11-20 08:00] VITALS: BP 100/70
[2019-11-20] MEDS: LISINOPRIL (10MG) 10 MG TABLET PO SCH (08:57)
[2019-11-20] MEDS: CARVEDILOL 6.25 MG TABLET PO SCH ×2 (08:57→21:00)
[2019-11-20] MEDS: ENOXAPARIN SODIUM 40 MG/0.4 ML DISP.SYRIN SQ SCH (08:58)
[2019-11-20 16:00] VITALS: BP 112/52
--- NOTE | 2019-11-20 19:00 | NUR ---
FARM MECHANIC NOTES PATIENT IN ALERT ORIENTED X 3. NO ACUTE DISTRESS NOTED, BREATHING UNLABORED. NEEDS ATTENDED AND ANTICIPATED. KEPT CLEAN DRY AND COMFORTABLE. SAFETY MEASURES IN PLACE. CALL LIGHT WITHIN REACH. WILL ENDORSE TO NIGHT NURSE FOR CONTINUITY OF CARE.
--- NOTE | 2019-11-20 19:14 | NUR ---
CHANGE OF SHIFT REPORT Patient in bed, awake, A/O x4 Independent with ADL. Tolerating RA, denies pain. Safety measure in place. Patient requesting sleeping medication for tonight, education provided and verbalized understanding.
[2019-11-20 20:00] VITALS: BP 120/93
[2019-11-20 20:40] VITALS: BP 120/93
--- NOTE | 2019-11-20 23:12 | NUR ---
CARVEDILOL NON ADMINISTERED Carvedilol indication and possible side effect reviewed with patient. Patient refused, risk and benefits explained, patient verbalized understanding.
--- NOTE | 2019-11-21 06:21 | NUR ---
END OF SHIFT REPORT Patient in bed, A/O x3. Independent with ADL. Tolerate RA, denies pain. Plan for BiV ICD placement, pending transfer to higher level of care, CM following. Fall precaution maintained.
--- NOTE | 2019-11-21 07:10 | NUR ---
MS RN NOTES PATIENT IN ALERT ORIENTED X 3. NO ACUTE DISTRESS NOTED, BREATHING UNLABORED. SAFETY MEASURES IN PLACE. CALL LIGHT WITHIN REACH. WILL CONTINUE TO MONITOR ACCORDINGLY.
[2019-11-21] MEDS: LEVOTHYROXINE SODIUM 50 MCG TABLET PO SCH (07:34)
[2019-11-21 08:04] LABS: CALCIUM, SERUM 9.2 mg/dL (8.5-10.1); POTASSIUM 3.7 mmol/L (3.5-5.1)
[2019-11-21 08:16] LABS: ALBUMIN 2.9 g/dL (3.4-5.0); BILIRUBIN,TOTAL 2.6 mg/dL (0.2-1.0); PHOSPHORUS 3.4 mg/dL (2.5-4.9); TOTAL PROTEIN, SERUM 6.7 g/dL (6.4-8.2)
[2019-11-21 08:17] LABS: BASOPHILS % (AUTO) 0.7 % (0.0-2.0); EOSINOPHILS % (AUTO) 0.3 % (0.0-6.0); HEMATOCRIT 54 % (33-45); HEMOGLOBIN 17.2 g/dL (11.5-14.8); LYMPHOCYTES # (AUTO) 1.1 /CMM (0.8-4.8); LYMPHOCYTES % (AUTO) 21.4 % (20.0-44.0); MEAN CORPUSCULAR HGB CONC 32 g/dl (31.0-36.0); MEAN CORPUSCULAR VOLUME 81 fL (82-100); MONOCYTES # (AUTO) 0.4 /CMM (0.1-1.30); MONOCYTES % (AUTO) 7.2 % (2.0-12.0); NEUTROPHILS # (AUTO) 3.6 /CMM (1.8-8.9); NEUTROPHILS % (AUTO) 70.4 % (43.0-81.0); PLATELET COUNT (AUTO) 154 /CMM (150-450); RED BLOOD CELL COUNT(AUTO) 6.62 MIL/uL (4.0-5.2); WHITE BLOOD COUNT (AUTO) 5.1 K/uL (4.3-11.0)
[2019-11-21] MEDS: CARVEDILOL 6.25 MG TABLET PO SCH ×2 (08:45→21:00)
[2019-11-21] MEDS: ENOXAPARIN SODIUM 40 MG/0.4 ML DISP.SYRIN SQ SCH (08:45)
[2019-11-21] MEDS: LISINOPRIL (10MG) 10 MG TABLET PO SCH (08:45)
[2019-11-21] MEDS: FUROSEMIDE 80 MG TABLET PO SCH (08:45)
--- NOTE | 2019-11-21 08:45 | NUR ---
MS RN NOTES PATIENT REFUSED COREG, LISINOPRIL AND LOVENOX DESPITE OD EXPLANATION OF RISKS AND BENEFITS
[2019-11-21 09:27] VITALS: BP 113/83
[2019-11-21] MEDS ORDERED: hydrOXYzine PAMOATE 25 MG CAPSULE PO PRN (14:30)
[2019-11-21] MEDS: ESCITALOPRAM OXALATE (10 MG) 10 MG TABLET PO SCH (15:36)
[2019-11-21 16:24] VITALS: BP 110/52
--- NOTE | 2019-11-21 19:00 | NUR ---
MS RN NOTES PATIENT IN ALERT ORIENTED X 3. NO ACUTE DISTRESS NOTED, BREATHING UNLABORED. NEEDS ATTENDED AND ANTICIPATED. KEPT CLEAN DRY AND COMFORTABLE. SAFETY MEASURES IN PLACE. CALL LIGHT WITHIN REACH. WILL ENDORSE TO NIGHT NURSE FOR CONTINUITY OF CARE.
--- NOTE | 2019-11-21 19:50 | NUR ---
MS RN NOTE: PATIENT RESTING IN BED, NO ACUTE DISTRESS NOTED., FAMILY AT BEDSIDE. BREATHING EVEN AND UNLABORED, NO SOB NOTED. IV TO RAC IN PLACE. BED LOCKED AND IN LOWEST POSITION, CALL LIGHT IN REACH. WILL CONTINUE TO MONITOR.
[2019-11-21 20:00] VITALS: BP 120/76
--- NOTE | 2019-11-21 21:35 | NUR ---
MS RN NOTE: PATIENT REFUSED COREG MEDICATIONS, STATES THAT HER BLOOD PRESSURE IS FINE WITHOUT IT. BP 120/76, HR 93. EXPLAINED RISK AND BENEFITS, BUT PATIENT CONTINUES TO REFUSE. WILL CONTINUE TO MONITOR.
--- NOTE | 2019-11-22 06:15 | NUR ---
MS RN NOTE: PATIENT RESTING IN BED, NO ACUTE DISTRESS NOTED. BREATHING EVEN AND UNLABORED, NO SOB NOTED. IV TO RAC IN PLACE. BED LOCKED AND IN LOWEST POSITION, CALL LIGHT IN REACH. WILL ENDORSE TO DAY NURSE TO CONTINUE WITH PLAN OF CARE.
--- NOTE | 2019-11-22 06:40 | NUR ---
MS RN NOTE: PATIENT ANXIOUS AND REQUESTING FOR MEDICATION. VISTARIL 25MG 1 CAP ORAL GIVEN PER MD ORDER. WILL CONTINUE TO MONITOR.
[2019-11-22] MEDS ORDERED: LEVOTHYROXINE SODIUM 75 MCG TABLET PO SCH (07:30)
[2019-11-22 08:00] VITALS: BP 98/83
[2019-11-22] MEDS ORDERED: LEVO75TA7 PO (08:00)
[2019-11-22] MEDS ORDERED: FURO80TA3 PO (08:00)
[2019-11-22] MEDS ORDERED: LISI10TA5 PO (08:00)
--- NOTE | 2019-11-22 08:00 | NUR ---
MS RN NOTES PATIENT REFUSED SYNTHROID DESPITE OF EXPLANATION OF RISKS AND BENEFITS.
[2019-11-22] MEDS: ENOXAPARIN SODIUM 40 MG/0.4 ML DISP.SYRIN SQ SCH (09:00)
[2019-11-22] MEDS: FUROSEMIDE 80 MG TABLET PO SCH (09:00)
[2019-11-22] MEDS: ESCITALOPRAM OXALATE (10 MG) 10 MG TABLET PO SCH (09:00)
[2019-11-22] MEDS: LISINOPRIL (10MG) 10 MG TABLET PO SCH (09:00)
[2019-11-22] MEDS: CARVEDILOL 6.25 MG TABLET PO SCH (09:00)
--- NOTE | 2019-11-22 09:00 | NUR ---
MS RN NOTES PATIENT REFUSED MORNING MEDICATIONS DESPITE OF EXPLANATION OF RISKS AND BENEFITS
[2019-11-22 16:56] VITALS: BP 108/60
--- NOTE | 2019-11-22 18:15 | NUR ---
MS PIANO TECHNICIAN NOTES PATIENT DISCHARGE HOME WITH STABLE VITAL SIGNS. NO ACUTE DISTRESS NOTED. BREATHING UNLABORED. NO SOB NOTED. DISCHARGE INSTRUCTIONS GIVEN TO THE PATIENT INCLUDING FOLLOW UP WITH CARDIOLOGY, LIFE VEST ON AT ALL TIMES AND DISCHARGE MEDICATIONS, VERBALIZED UNDERSTANDING. IV ACCESS REMOVED. NO REDNESS, NO SWELLING, NO BLEEDING NOTED. ALL BELONGINGS ACCOUNTED FOR. PROVIDED INTERMEDIATE INFORMATION AND TAP CARD PROVIDED. ASSISTED TO THE LOBBY, PATIENT AMBULATORY WITH STEADY GAIT. ALERT ORIENTED X 3.
== END 2019-11-22 18:32 | disposition home or self-care (01) | DRG 194 ==
LOC: ER 00:54 → TELE 02:49 → MED 11-20 11:19
PROVIDERS: ADMIT Internal Medicine; ATTEND Internal Medicine
DX: I50.23 Acute on chronic systolic (congestive) heart failure (principal); N17.0 Acute kidney failure with tubular necrosis; F33.2 Major depressive disorder, recurrent severe without psychotic features; I42.0 Dilated cardiomyopathy; E87.6 Hypokalemia; I25.10 Atherosclerotic heart disease of native coronary artery without angina pectoris; F41.1 Generalized anxiety disorder; I25.5 Ischemic cardiomyopathy; Z79.890 Hormone replacement therapy; Z87.891 Personal history of nicotine dependence; Z59.0 Homelessness; Z98.82 Breast implant status; I34.0 Nonrheumatic mitral (valve) insufficiency; R74.0 Nonspecific elevation of levels of transaminase and lactic acid dehydrogenase [LDH]; E03.9 Hypothyroidism, unspecified; E06.3 Autoimmune thyroiditis; Z91.19 Patient's noncompliance with other medical treatment and regimen; J44.9 Chronic obstructive pulmonary disease, unspecified; I25.2 Old myocardial infarction
CPT/HCPCS: 36415; 71045-TC; 75574; 80048-TC; 80053-TC; 80061-TC; 80076-TC; 83735-TC; 83880; 84100-TC; 84443-TC; 84484-TC; 85025-TC; 85730-TC; 86704; 86705; 86706; 86803; 87040-TC; 87081-TC; 87340; 87806; 93307-TC; A4216; G0378; J1650; J1940; J3490; J7050; Q0177; Q9967